=== PATIENT | female | born 1945 | race Two or more races ===

== ENCOUNTER 2024-10-30 06:15 | Day surgery (SDC) | payer MEDICARE, SELFPAY ==
[2024-10-30 12:46] VITALS: BP 180/100
[2024-10-30 12:52] VITALS: BMI 41.6
[2024-10-30 15:48] VITALS: BP 173/97
[2024-10-30 16:00] VITALS: BP 134/72
[2024-10-30 16:08] VITALS: BP 145/76
== END 2024-10-30 16:27 | disposition home or self-care (01) ==
LOC: SDS 06:15
PROVIDERS: ATTENDING PHYSICIAN Internal Medicine Gastroenterology
DX: K86.2 Cyst of pancreas (principal); K76.6 Portal hypertension; K80.20 Calculus of gallbladder without cholecystitis without obstruction; I85.00 Esophageal varices without bleeding; K31.89 Other diseases of stomach and duodenum; K85.90 Acute pancreatitis without necrosis or infection, unspecified
CPT/HCPCS: 43238; 88173